=== PATIENT | female | born 1990 | race Caucasian/White ===

== ENCOUNTER 2019-01-01 08:29 | Emergency (ER) | payer OTHER ==
[~2019-01-01] VITALS: Ht 165.1 cm; Wt 59.0 kg
[2019-01-01 08:41] VITALS: BP 114/64
--- NOTE | 2019-01-01 09:39 | NUR ---
PT SEEN AND DC'D BY PROVIDER
== END 2019-01-01 09:39 | disposition home or self-care (01) ==
LOC: ER 08:29
DX: S61.231A Puncture wound without foreign body of left index finger without damage to nail, initial encounter (principal); Z88.6 Allergy status to analgesic agent; W46.1XXA Contact with contaminated hypodermic needle, initial encounter; Y93.89 Activity, other specified; Y92.89 Other specified places as the place of occurrence of the external cause; Y99.9 Unspecified external cause status
CPT/HCPCS: 99281

== ENCOUNTER 2019-03-09 12:50 | Outpatient (CLI) | payer OTHER ==
[2019-03-09] MEDS ORDERED: iohexol 300mg/ml 100ml inj. ONE (13:02)
== END 2019-03-09 23:59 | disposition home or self-care (01) ==
LOC: 64 CT 12:50
PROVIDERS: ATTEND Podiatrist Foot & Ankle Surgery
DX: M25.471 Effusion, right ankle (principal); M79.671 Pain in right foot; M20.21 Hallux rigidus, right foot
CPT/HCPCS: 73700; Q9967

== ENCOUNTER → 2019-03-21 | Outpatient (CLI) | payer OTHER ==
[2019-03-21 16:39] LABS: CLARITY,URINE SLIGHTLY CLOUDY (Clear); COLOR,URINE YELLOW (Yellow); GLUCOSE, URINE NEGATIVE (Neg); KETONES,URINE NEGATIVE (Neg); LEUKOCYTE ESTERASE ,URINE NEGATIVE (Neg); NITRITES, URINE NEGATIVE (Neg); OCCULT BLOOD,URINE NEGATIVE (Neg); PH,URINE 7.5 (4.8-8.0); PROTEIN,URINE NEGATIVE (Neg)
[2019-03-21 16:41] LABS: UA COLLECTION TYPE CLN CATCH MIDSTREAM
[2019-03-21 16:48] LABS: BASOPHILS % (AUTO) 0.7 % (0-1); EOSINOPHILS % (AUTO) 0.9 % (0-6); HEMATOCRIT 41.1 % (35.0-45.0); LYMPHOCYTES # (AUTO) 1.7 X10'3 (1.1-4.8); LYMPHOCYTES % (AUTO) 36.9 % (21-51); MEAN CORPUSCULAR HEMOGLOBIN 32.5 PG (27.0-31.0); MEAN CORPUSCULAR HGB CONC 34.1 g/dL (33.0-36.5); MEAN CORPUSCULAR VOLUME 95.1 FL (78-98); MEAN PLATELET VOLUME 9.7 FL (7.4-10.4); MONOCYTES # (AUTO) 0.3 X10'3 (0-0.9); MONOCYTES % (AUTO) 6.2 % (2-12); NEUTROPHILS # (AUTO) 2.6 X10'3 (1.8-7.7); NEUTROPHILS % (AUTO) 55.3 % (42-75); PLATELET COUNT 194 X10'3 (140-440); RED BLOOD COUNT 4.32 X10'6 (4.20-5.60); RED CELL DISTRIBUTION WIDTH 12.5 % (11.5-14.5); WHITE BLOOD COUNT 4.6 X10'3 (4.5-11.0)
[2019-03-21 17:06] LABS: BACTERIA,URINE FEW /HPF (Neg); MUCUS STRANDS FEW /LPF (Neg); RBC,URINE 0-2 /HPF (0-2); WBC,URINE 0-4 /HPF (0-4)
[2019-03-21 17:07] LABS: SQUAMOUS EPITHELIAL CELL,UR MODERATE /LPF (FEW)
[2019-03-21 17:12] LABS: ALANINE AMINOTRANSFERASE 20 U/L (12-78); ALBUMIN 3.8 G/DL (3.4-5.0); ALBUMIN/GLOBULIN RATIO 1.2 (1.1-1.5); ALKALINE PHOSPHATASE 39 IU/L (46-116); ANION GAP 7 (8-16); ASPARTATE AMINO TRANSFERASE 13 U/L (10-37); BILIRUBIN,TOTAL 0.4 MG/DL (0.1-1.0); BLOOD UREA NITROGEN 10 MG/DL (7-18); BUN/CREATININE RATIO 15.2 (6.6-38.0); CALCIUM 8.5 MG/DL (8.5-10.1); CHLORIDE 107 MMOL/L (99-107); CHOL/HDL RATIO 2.7 (0.00-4.99); CHOLESTEROL 165 MG/DL (0-200); CREATININE 0.66 MG/DL (0.40-0.90); GLUCOSE 80 MG/DL (70-104); HDL CHOLESTEROL 61 MG/DL (35-60); LDL CHOLESTEROL 106 MG/DL (50-100); POTASSIUM 4.6 MMOL/L (3.5-5.1); SODIUM 140 MMOL/L (135-145); TOTAL CARBON DIOXIDE 26.4 MMOL/L (24-32); TRIGLYCERIDES 25 MG/DL (20-135); eGFR > 90 ML/MIN
== END | disposition home or self-care (01) ==
LOC: LAB 15:25
PROVIDERS: ATTEND Family Medicine
DX: Z76.89 Persons encountering health services in other specified circumstances (principal)
CPT/HCPCS: 36415; 80053; 80061; 81001; 84439; 84443; 85025

== ENCOUNTER 2019-07-05 10:54 | Outpatient (CLI) | payer OTHER | END 2019-07-05 23:59 | disposition home or self-care (01) | LOC: RAD 10:54 | PROVIDERS: ATTEND Orthopaedic Surgery | DX: S92.811A Other fracture of right foot, initial encounter for closed fracture (principal); X58.XXXA Exposure to other specified factors, initial encounter; Y92.89 Other specified places as the place of occurrence of the external cause; Y93.89 Activity, other specified; Y99.8 Other external cause status | CPT/HCPCS: 73630 ==

== ENCOUNTER 2019-07-26 14:03 | Outpatient (CLI) | payer OTHER | END 2019-07-26 23:59 | disposition home or self-care (01) | LOC: RAD 14:03 | PROVIDERS: ATTEND Orthopaedic Surgery | DX: M19.071 Primary osteoarthritis, right ankle and foot (principal) | CPT/HCPCS: 73620 ==

== ENCOUNTER 2019-08-03 11:44 | Outpatient (CLI) | payer OTHER | END 2019-08-03 23:59 | disposition home or self-care (01) | LOC: RAD 11:44 | PROVIDERS: ATTEND Orthopaedic Surgery | DX: S92.811A Other fracture of right foot, initial encounter for closed fracture (principal); X58.XXXA Exposure to other specified factors, initial encounter; Y93.89 Activity, other specified; Y92.89 Other specified places as the place of occurrence of the external cause; Y99.8 Other external cause status | CPT/HCPCS: 73620 ==

== ENCOUNTER 2019-08-30 13:15 | Outpatient (CLI) | payer OTHER ==
[2019-08-30 14:00] LABS: BASOPHILS % (AUTO) 0.6 % (0-1); EOSINOPHILS # (AUTO) 0.2 X10'3 (0-0.9); EOSINOPHILS % (AUTO) 3.3 % (0-6); HEMOGLOBIN 13.9 g/dl (12.0-16.0); LYMPHOCYTES # (AUTO) 1.4 X10'3 (1.1-4.8); LYMPHOCYTES % (AUTO) 22.5 % (21-51); MEAN CORPUSCULAR HEMOGLOBIN 31.8 PG (27.0-31.0); MEAN CORPUSCULAR HGB CONC 33.1 g/dL (33.0-36.5); MEAN CORPUSCULAR VOLUME 96.1 FL (78-98); MEAN PLATELET VOLUME 9.5 FL (7.4-10.4); MONOCYTES # (AUTO) 0.4 X10'3 (0-0.9); MONOCYTES % (AUTO) 6.5 % (2-12); NEUTROPHILS # (AUTO) 4.1 X10'3 (1.8-7.7); NEUTROPHILS % (AUTO) 67.1 % (42-75); PLATELET COUNT 170 X10'3 (140-440); RED BLOOD COUNT 4.37 X10'6 (4.20-5.60); RED CELL DISTRIBUTION WIDTH 12.4 % (11.5-14.5); WHITE BLOOD COUNT 6.1 X10'3 (4.5-11.0)
== END 2019-08-30 23:59 | disposition home or self-care (01) ==
LOC: LAB 13:15
PROVIDERS: ATTEND Family Medicine
DX: Z30.9 Encounter for contraceptive management, unspecified (principal); B37.3 Candidiasis of vulva and vagina; R51 Headache; R10.2 Pelvic and perineal pain
CPT/HCPCS: 36415; 85025; 85651; 86140; 87491

== ENCOUNTER 2020-05-26 07:19 | Emergency (ER) | payer OTHER ==
[~2020-05-26] VITALS: Ht 162.6 cm; Wt 59.1 kg
[2020-05-26 07:22] VITALS: BP 129/70
--- NOTE | 2020-05-26 07:35 | NUR ---
Dr. Diallo at bedside.
== END 2020-05-26 08:15 | disposition home or self-care (01) ==
LOC: ER 07:19 → EEVIPCON 07:19 → ER 08:15
DX: M25.571 Pain in right ankle and joints of right foot (principal); Z88.8 Allergy status to other drugs, medicaments and biological substances; X50.1XXA Overexertion from prolonged static or awkward postures, initial encounter; Y93.01 Activity, walking, marching and hiking; Y92.89 Other specified places as the place of occurrence of the external cause; Y99.8 Other external cause status
CPT/HCPCS: 73610; 99283

== ENCOUNTER 2023-04-02 14:20 | Outpatient (CLI) | payer BC ==
[2023-04-07 13:49] LABS: HBSAG SCREEN Negative (Negative); HEP A AB, IGM Negative (Negative); HEP B CORE AB, IGM Negative (Negative); HEPATITIS C VIRUS ANTIBODY Non Reactive (Non Reactive)
== END 2023-04-02 23:59 | disposition home or self-care (01) ==
LOC: LAB 14:20
PROVIDERS: ATTEND Physician Assistant Medical
DX: Z11.3 Encounter for screening for infections with a predominantly sexual mode of transmission (principal); B00.9 Herpesviral infection, unspecified
CPT/HCPCS: 36415; 80074; 86592; 87389

== ENCOUNTER 2023-06-26 06:17 | Emergency (ER) | payer BC ==
[~2023-06-26] VITALS: Ht 162.6 cm; Wt 59.1 kg
[2023-06-26 08:01] VITALS: TEMP 98.9
[2023-06-26] MEDS ORDERED: APIX5TAB3 PO (08:52)
[2023-06-26 09:31] VITALS: BP 142/66; PULSE 65; RESP 22; O2SAT 100
== END 2023-06-26 09:33 | disposition home or self-care (01) ==
LOC: ER 06:18
DX: I82.402 Acute embolism and thrombosis of unspecified deep veins of left lower extremity (principal); Z88.8 Allergy status to other drugs, medicaments and biological substances; Z79.899 Other long term (current) drug therapy
CPT/HCPCS: 93971; 99284

== ENCOUNTER 2023-06-30 15:21 | Emergency (ER) | payer BC ==
[~2023-06-30] VITALS: Ht 165.1 cm; Wt 60.6 kg
[~2023-06-30 15:21] MED LIST: APIX5TAB3 PO
[2023-06-30 15:35] VITALS: BP 118/66; PULSE 83; RESP 16; TEMP 98.4; O2SAT 100
== END 2023-06-30 18:08 | disposition home or self-care (01) ==
LOC: ER 15:23
DX: S86.811A Strain of other muscle(s) and tendon(s) at lower leg level, right leg, initial encounter (principal); Z88.8 Allergy status to other drugs, medicaments and biological substances; Z79.899 Other long term (current) drug therapy; X58.XXXA Exposure to other specified factors, initial encounter; Y93.89 Activity, other specified; Y92.89 Other specified places as the place of occurrence of the external cause; Y99.8 Other external cause status
CPT/HCPCS: 93971; 99284

== ENCOUNTER 2023-07-14 17:35 | Emergency (ER) | payer BC ==
[~2023-07-14] VITALS: Ht 162.6 cm; Wt 54.5 kg
[2023-07-14 18:48] VITALS: BP 145/96; PULSE 83; RESP 16; TEMP 98.4; O2SAT 100
[2023-07-14] MEDS ORDERED: APIX5TAB3 PO (18:58)
== END 2023-07-14 19:06 | disposition home or self-care (01) ==
LOC: ER 17:35
DX: Z76.0 Encounter for issue of repeat prescription (principal); Z86.718 Personal history of other venous thrombosis and embolism; Z88.8 Allergy status to other drugs, medicaments and biological substances; Z79.899 Other long term (current) drug therapy
CPT/HCPCS: 99281

== ENCOUNTER 2024-03-29 14:25 | Outpatient (CLI) | payer BC ==
[2024-03-29 15:07] LABS: BASOPHILS % (AUTO) 0.3 % (0-1); EOSINOPHILS # (AUTO) 0.1 X10'3 (0-0.9); EOSINOPHILS % (AUTO) 1.2 % (0-6); HEMATOCRIT 39.7 % (35.0-45.0); HEMOGLOBIN 13.5 g/dl (12.0-16.0); LYMPHOCYTES # (AUTO) 1.5 X10'3 (1.1-4.8); LYMPHOCYTES % (AUTO) 29.4 % (21-51); MEAN CORPUSCULAR HGB CONC 33.9 g/dL (33.0-36.5); MEAN CORPUSCULAR VOLUME 97.3 FL (78-98); MEAN PLATELET VOLUME 8.9 FL (7.4-10.4); MONOCYTES # (AUTO) 0.3 X10'3 (0-0.9); MONOCYTES % (AUTO) 6.4 % (2-12); NEUTROPHILS # (AUTO) 3.3 X10'3 (1.8-7.7); NEUTROPHILS % (AUTO) 62.7 % (42-75); PLATELET COUNT 166 X10'3 (140-440); RED BLOOD COUNT 4.08 X10'6 (4.20-5.60); RED CELL DISTRIBUTION WIDTH 12.5 % (11.5-14.5); WHITE BLOOD COUNT 5.2 X10'3 (4.5-11.0)
[2024-03-29 15:46] LABS: HEMOGLOBIN A1C 5.2 % (4.5-6.2)
[2024-03-29 15:52] LABS: ALANINE AMINOTRANSFERASE 19 U/L (12-78); ALBUMIN 3.9 G/DL (3.4-5.0); ALBUMIN/GLOBULIN RATIO 1.1 (1.1-1.5); ALKALINE PHOSPHATASE 37 IU/L (46-116); ANION GAP 8 (8-16); ASPARTATE AMINO TRANSFERASE 12 U/L (10-37); BILIRUBIN,TOTAL 0.4 MG/DL (0.1-1.0); BLOOD UREA NITROGEN 12 MG/DL (7-18); CHLORIDE 106 MMOL/L (99-107); CHOL/HDL RATIO 2.4 (0.00-4.99); CHOLESTEROL 138 MG/DL (0-200); CREATININE 0.75 MG/DL (0.40-0.90); GLUCOSE 88 MG/DL (70-104); HDL CHOLESTEROL 58 MG/DL (35-60); LDL CHOLESTEROL 78 MG/DL (50-100); POTASSIUM 4.1 MMOL/L (3.5-5.1); SODIUM 139 MMOL/L (135-145); THYROID STIMULATING HORMONE 3.59 ulU/ml (0.34-4.50); TOTAL CARBON DIOXIDE 24.7 MMOL/L (24-32); TOTAL PROTEIN 7.3 G/DL (6.4-8.2); TRIGLYCERIDES 35 MG/DL (20-135); eGFR 88 ML/MIN
[2024-03-29 15:53] LABS: BETA HCG,QUANTITATIVE 4706 mIU/ml
== END 2024-03-29 23:59 | disposition home or self-care (01) ==
LOC: LAB 14:25
PROVIDERS: ATTEND Nurse Practitioner
DX: N91.2 Amenorrhea, unspecified (principal)
CPT/HCPCS: 36415; 80053; 80061; 82306; 82607; 82746; 83036; 84436; 84443; 84702; 85025

== ENCOUNTER 2024-05-06 07:29 | Emergency (ER) | payer BC ==
[~2024-05-06] VITALS: Ht 164.5 cm; Wt 64.5 kg
[2024-05-06 07:33] VITALS: BP 127/78; PULSE 65; RESP 16; TEMP 98.5; O2SAT 99
[2024-05-06 08:04] LABS: URINE HCG POSITIVE (NEG)
[2024-05-06 08:15] LABS: BILIRUBIN,URINE NEGATIVE (Neg); CLARITY,URINE SLIGHTLY CLOUDY (Clear); COLOR,URINE YELLOW (Yellow); GLUCOSE, URINE NEGATIVE (Neg); KETONES,URINE NEGATIVE (Neg); LEUKOCYTE ESTERASE ,URINE NEGATIVE (Neg); NITRITES, URINE NEGATIVE (Neg); OCCULT BLOOD,URINE NEGATIVE (Neg); PROTEIN,URINE NEGATIVE (Neg); UROBILINOGEN,URINE 0.2 E.U/dL (0.2-1.0)
[2024-05-06 08:17] LABS: UA COLLECTION TYPE CLN CATCH MIDSTREAM
[2024-05-06 08:22] LABS: BACTERIA,URINE 1+ /HPF (Neg); MUCUS STRANDS NONE SEEN /LPF (Neg); RBC,URINE NONE SEEN /HPF (0-2); SQUAMOUS EPITHELIAL CELL,UR MANY /LPF (FEW); WBC,URINE 0-4 /HPF (0-4)
== END 2024-05-06 08:11 | disposition home or self-care (01) ==
LOC: ER 07:29
DX: O26.891 Other specified pregnancy related conditions, first trimester (principal); R10.2 Pelvic and perineal pain; Z88.8 Allergy status to other drugs, medicaments and biological substances; Z3A.11 11 weeks gestation of pregnancy
CPT/HCPCS: 81001; 81025; 99283

== ENCOUNTER 2024-05-06 08:54 | Outpatient (CLI) | payer BC ==
[2024-05-06 09:51] LABS: HCG SERUM QL POSITIVE
== END 2024-05-06 23:59 | disposition home or self-care (01) ==
LOC: RAD 08:54
PROVIDERS: ATTEND Specialist
DX: Z36.89 Encounter for other specified antenatal screening (principal)
CPT/HCPCS: 36415; 84703

== ENCOUNTER 2024-05-21 09:31 | Emergency (ER) | payer OTHER ==
[~2024-05-21] VITALS: Ht 162.6 cm; Wt 66.8 kg
[2024-05-21] MEDS: TETanus/Pertussis (Acell)/Diphther VAC/PF (Tdap-Adult) 0.5ml syringe IMVAC ONE (10:20)
[2024-05-21 10:32] VITALS: BP 118/64; PULSE 56; RESP 16; TEMP 97.2; O2SAT 99
== END 2024-05-21 10:35 | disposition home or self-care (01) ==
LOC: ER 09:31
DX: Z77.21 Contact with and (suspected) exposure to potentially hazardous body fluids (principal); S61.011A Laceration without foreign body of right thumb without damage to nail, initial encounter; Z87.891 Personal history of nicotine dependence; Z86.718 Personal history of other venous thrombosis and embolism; Z88.8 Allergy status to other drugs, medicaments and biological substances; W26.8XXA Contact with other sharp object(s), not elsewhere classified, initial encounter; Y93.E8 Activity, other personal hygiene; Y92.89 Other specified places as the place of occurrence of the external cause; Y99.8 Other external cause status
CPT/HCPCS: 90471; 90715; 99283

== ENCOUNTER 2024-05-23 11:59 | Outpatient (CLI) | payer BC ==
[2024-05-23 12:55] LABS: BILIRUBIN,URINE NEGATIVE (Neg); CLARITY,URINE CLEAR (Clear); COLOR,URINE STRAW (Yellow); GLUCOSE, URINE NEGATIVE (Neg); KETONES,URINE NEGATIVE (Neg); LEUKOCYTE ESTERASE ,URINE NEGATIVE (Neg); NITRITES, URINE NEGATIVE (Neg); OCCULT BLOOD,URINE TRACE-INTACT (Neg); PROTEIN,URINE NEGATIVE (Neg); UROBILINOGEN,URINE 0.2 E.U/dL (0.2-1.0)
[2024-05-23 13:04] LABS: UA COLLECTION TYPE CLN CATCH MIDSTREAM
[2024-05-23 13:05] LABS: BACTERIA,URINE 2+ /HPF (Neg); BASOPHILS % (AUTO) 0.4 % (0-1); EOSINOPHILS # (AUTO) 0.1 X10'3 (0-0.9); EOSINOPHILS % (AUTO) 0.8 % (0-6); HEMATOCRIT 39.8 % (35.0-45.0); HEMOGLOBIN 13.7 g/dl (12.0-16.0); LYMPHOCYTES # (AUTO) 1.6 X10'3 (1.1-4.8); LYMPHOCYTES % (AUTO) 21.8 % (21-51); MEAN CORPUSCULAR HEMOGLOBIN 32.8 PG (27.0-31.0); MEAN CORPUSCULAR HGB CONC 34.4 g/dL (33.0-36.5); MEAN CORPUSCULAR VOLUME 95.4 FL (78-98); MEAN PLATELET VOLUME 9.2 FL (7.4-10.4); MONOCYTES # (AUTO) 0.4 X10'3 (0-0.9); MONOCYTES % (AUTO) 5.8 % (2-12); MUCUS STRANDS NONE SEEN /LPF (Neg); NEUTROPHILS # (AUTO) 5.2 X10'3 (1.8-7.7); NEUTROPHILS % (AUTO) 71.2 % (42-75); PLATELET COUNT 169 X10'3 (140-440); RBC,URINE NONE SEEN /HPF (0-2); RED BLOOD COUNT 4.18 X10'6 (4.20-5.60); RED CELL DISTRIBUTION WIDTH 12.3 % (11.5-14.5); SQUAMOUS EPITHELIAL CELL,UR FEW /LPF (FEW); WBC,URINE 0-4 /HPF (0-4); WHITE BLOOD COUNT 7.3 X10'3 (4.5-11.0)
[2024-05-23 13:48] LABS: HIV ANTIBODY 1&2 RAPID NON-REACTIVE (Neg)
[2024-05-25 11:11] LABS: RUBELLA ANTIBODIES, IGG 7.24 index (Immune >0.99)
[2024-05-26 05:14] LABS: CHLAMYDIA TRACHOMATIS, NAA Negative (Negative); HBSAG SCREEN Negative (Negative); HEPATITIS C VIRUS ANTIBODY Non Reactive (Non Reactive)
== END 2024-05-23 23:59 | disposition home or self-care (01) ==
LOC: LAB 11:59
PROVIDERS: ATTEND Specialist
DX: Z34.81 Encounter for supervision of other normal pregnancy, first trimester (principal); Z3A.00 Weeks of gestation of pregnancy not specified
CPT/HCPCS: 36415; 81001; 85025; 86592; 86703; 86762; 86803; 86885; 86900; 86901; 87088; 87340; 87491; 87522; 87529

== ENCOUNTER 2024-06-30 12:40 | Outpatient (CLI) | payer BC | END 2024-06-30 23:59 | disposition home or self-care (01) | LOC: RAD 12:40 | PROVIDERS: ATTEND Nurse Practitioner | DX: M25.561 Pain in right knee (principal); G89.29 Other chronic pain | CPT/HCPCS: 76881 ==

== ENCOUNTER 2024-07-07 13:34 | Outpatient (CLI) | payer BC | END 2024-07-07 23:59 | disposition home or self-care (01) | LOC: MRI 13:34 | PROVIDERS: ATTEND Nurse Practitioner | DX: M25.561 Pain in right knee (principal) | CPT/HCPCS: 73721 ==

== ENCOUNTER 2024-08-26 09:49 | Outpatient (CLI) | payer BC ==
[2024-08-26 11:16] LABS: BASOPHILS % (AUTO) 0.3 % (0-1); EOSINOPHILS # (AUTO) 0.2 X10'3 (0-0.9); HEMATOCRIT 38.7 % (35.0-45.0); HEMOGLOBIN 13.2 g/dl (12.0-16.0); LYMPHOCYTES # (AUTO) 1.4 X10'3 (1.1-4.8); LYMPHOCYTES % (AUTO) 18.7 % (21-51); MEAN CORPUSCULAR HEMOGLOBIN 33.1 PG (27.0-31.0); MEAN CORPUSCULAR HGB CONC 34.2 g/dL (33.0-36.5); MEAN CORPUSCULAR VOLUME 96.7 FL (78-98); MEAN PLATELET VOLUME 9.1 FL (7.4-10.4); MONOCYTES # (AUTO) 0.4 X10'3 (0-0.9); MONOCYTES % (AUTO) 5.2 % (2-12); NEUTROPHILS # (AUTO) 5.4 X10'3 (1.8-7.7); NEUTROPHILS % (AUTO) 73.8 % (42-75); PLATELET COUNT 156 X10'3 (140-440); RED CELL DISTRIBUTION WIDTH 14.1 % (11.5-14.5); WHITE BLOOD COUNT 7.4 X10'3 (4.5-11.0)
== END 2024-08-26 23:59 | disposition home or self-care (01) ==
LOC: LAB 09:49
PROVIDERS: ATTEND Specialist
DX: Z34.92 Encounter for supervision of normal pregnancy, unspecified, second trimester (principal); Z3A.00 Weeks of gestation of pregnancy not specified
CPT/HCPCS: 36415; 82950; 85025; 86592

== ENCOUNTER 2025-03-21 11:59 | Outpatient (CLI) | payer BC ==
--- NOTE | 2025-03-21 12:39 | RADIOLOGY REPORT ---
INDICATION: LEFT WRIST PAIN TECHNIQUE: 4 radiographic views of the left wrist were obtained. COMPARISON: FOOT, COMPLETE (3VW MIN) on DOS: 07/05/19 FINDINGS: There is no evidence of acute fracture or dislocation.The visualized joint space is well maintained.The alignment is anatomical.The surrounding soft tissues are unremarkable.There is no bony lesions or erosions identified. IMPRESSION: No acute fracture.
== END 2025-03-21 23:59 | disposition home or self-care (01) ==
LOC: RAD 11:59
PROVIDERS: ATTEND Nurse Practitioner
DX: M25.532 Pain in left wrist (principal)
CPT/HCPCS: 73110

== ENCOUNTER 2025-04-12 16:02 | Outpatient (CLI) | payer BC ==
--- NOTE | 2025-04-12 18:06 | RADIOLOGY REPORT ---
EXAM: MR MRI UPPER EXTREMITY LEFT INDICATION: PAIN IN LEFT WRIST TECHNIQUE: Multisequence, multiplanar MRI of the left wrist was performed in the absence of gadolinium contrast material. COMPARISON: None FINDINGS: CARPAL TUNNEL: The traversing flexor tendons are intact. Normal thickness of the overlying flexor retinaculum. Normal signal intensity and morphology of the median nerve. FLEXOR TENDONS: Intact without tenosynovitis. EXTENSOR TENDONS: Trace amount of fluid signal along the course of the distal aspect of the 1st extensor compartment; correlate with clinical exam for trace tenosynovitis. Intact. TRIANGULAR FIBROCARTILAGE: Intact. EXTRINSIC/INTRINSIC LIGAMENTS: Intact. JOINTS: No joint effusion. No measurable cartilage defect. BONES: Normal. MUSCLES: Normal. NEUROVASCULAR: Normal signal intensity and morphology of the ulnar nerve at Guyon's canal. The radial neurovascular bundle is intact. OTHER: Small ganglion cyst along the dorsal radial aspect of the wrist measuring 7 mm. The surrounding soft tissues are unremarkable. IMPRESSION: 1. Trace amount of fluid signal along the course of the distal aspect of the 1st extensor compartment; correlate with clinical exam for trace tenosynovitis. 2. Small ganglion cyst along the dorsal radial aspect of the wrist measuring 7 mm.
== END 2025-04-12 23:59 | disposition home or self-care (01) ==
LOC: MRI02 16:02
PROVIDERS: ATTEND Nurse Practitioner
DX: M67.432 Ganglion, left wrist (principal); M25.532 Pain in left wrist
CPT/HCPCS: 73221